=== PATIENT | male | born 1950 ===

== ENCOUNTER 2017-06-13 07:07 | Emergency (ER) | payer OTHER ==
[2017-06-13 07:11] VITALS: BP 130/87
--- NOTE | 2017-06-13 09:13 | ED ---
Kendra Dsouza Gabriel, scribed for Jose Lee MD on 06/13/17 at 0723 . Throat Pain/Nasal Congestion - HPI Summary HPI Summary: This patient is a 67 year old M presenting to [facility] with a chief complaint of foreign body in right ear since this morning. Pt states he was taking off a hearing aid last night and piece of it broke off and feels like it is stuck in his ear. Patient denies jaw pain, CP, SOB, and dyspnea. - History of Current Complaint Chief Complaint: EDEarPain Hx Obtained From: Patient Onset/Duration: Lasting Days - 1, Still Present Severity: Mild Associated Signs And Symptoms: Positive: Negative - jaw pain, CP, SOB, and dyspnea - Allergies/Home Medications Allergies/Adverse Reactions: Allergies Allergy/AdvReac Type Severity Reaction Status Date / Time No Known Allergies Allergy Verified 06/13/17 07:11 PMH/Surg Hx/FS Hx/Imm Hx Previously Healthy: Yes Endocrine/Hematology History: Denies: Hx Diabetes, Hx Systemic Lupus Erythematosus Cardiovascular History: Denies: Hx Hypertension, Hx Myocardial Infarction History: Denies: Hx Renal Disease Musculoskeletal History: Denies: Hx Rheumatoid Arthritis - Surgical History Surgery Procedure, Year, and Place: Tonsillectomy, wisdom teeth extraction Infectious Disease History: No Infectious Disease History: Denies: Traveled Outside the [place] in Last 30 Days - Family History Known Family History: Negative: Hypertension - Social History Lives: With Family Alcohol Use: None Hx Substance Use: No Substance Use Type: Reports: None Hx Tobacco Use: No Smoking Status (MU): Never Smoked Tobacco Review of Systems ENT: Negative - jaw pain Positive: Other - foreign body in ear Negative: Chest Pain Respiratory: Negative - dyspnea Negative: Shortness Of Breath All Other Systems Reviewed And Are Negative: Yes Physical Exam - Summary Physical Exam Summary: Appearance: Well appearing, no pain distress Skin: warm, dry, reflects adequate perfusion Head/face: normal Eyes: EOMI, SATISH ENT: There is a foreign body in the right ear. No redness or edema in the canal Neck: supple, non-tender Respiratory: CTA, breath sounds present Cardiovascular: RRR, pulses symmetrical Abdomen: non-tender, soft Bowel: present Musculoskeletal: normal, strength/ROM intact Neuro: normal, sensory motor intact, A&Ox Triage Information Reviewed: Yes Vital Signs On Initial Exam: Initial Vitals Temp Pulse Resp BP Pulse Ox 97 F 94 16 130/87 96 06/13/17 07:08 06/13/17 07:08 06/13/17 07:08 06/13/17 07:08 06/13/17 07:08 Vital Signs Reviewed: Yes Procedures - Procedure Summary Procedure Summary: Foreign body removal: Using alligator forceps the piece of the hearing aid was easily removed from the right ear canal. Tolerated well without complications. No injury to canal. Diagnostics - Vital Signs Vital Signs Temp Pulse Resp BP Pulse Ox 06/13/17 07:08 97 F 94 16 130/87 96 - Laboratory Lab Statement: Any lab studies that have been ordered have been reviewed, and results considered in the medical decision making process. EENT Course/Dx - Course Course Of Treatment: Pt had soft silicone tip from hearing aid removed without issue. - Diagnoses Provider Diagnoses: Foreign body of ear, right Discharge - Discharge Plan Condition: Good Disposition: HOME Patient Education Materials: Ear Foreign Body (ED) Referrals: Arron Gonzales MD [Primary Care Provider] - Additional Instructions: Follow up as needed. The documentation as recorded by the Kendra evans Gabriel accurately reflects the service I personally performed and the decisions made by Rosa baxter Kirk, MD.
== END 2017-06-13 07:25 | disposition home or self-care (01) ==
LOC: ED 07:07
DX: T16.1XXA Foreign body in right ear, initial encounter (principal); X58.XXXA Exposure to other specified factors, initial encounter; Y92.9 Unspecified place or not applicable
CPT/HCPCS: 99281

== ENCOUNTER 2018-05-21 07:35 | Day surgery (SDC) | payer OTHER ==
[~2018-05-21 07:35] MED LIST: Buffered Lidocaine 0.9% SYRIN* 5 ML/SYR SYRINGE INTRADERM ONE
[2018-05-21] MEDS ORDERED: Midazolam* 1 MG/ML 2 ML VIAL (2 MG) ONE ×2 (09:41→09:45)
[2018-05-21 10:06] VITALS: BP 119/77
--- NOTE | 2018-05-21 13:29 | OP ---
DATE OF OPERATION: 05/21/2018 - [facility] DATE OF : 1950. SURGEON: Brice Mojica M.D. PREOPERATIVE DIAGNOSIS: Cataract right eye. POSTOPERATIVE DIAGNOSIS: Cataract right eye. OPERATIVE PROCEDURE: Extracapsular cataract extraction with intraocular lens implant right eye. DESCRIPTION OF PROCEDURE: The patient was brought to the operating room after being given 1/2% Alcaine with epinephrine drops in the preoperative area. The eye was prepped and draped in the usual sterile fashion. Sterile drape and eyelid speculum were placed. Again, topical 1/2% Alcaine with epinephrine was given. A paracentesis incision was made at the 9 o'clock position with the No.75 blade. Clear cornea incision 2.2 x 2.2-mm was created at the 12 o'clock position starting at the anterior limbus using the 2.2-mm keratome. The anterior chamber was irrigated with 0.4 mL of 1% non-preservative intracameral lidocaine and filled with DisCoVisc. A capsulorrhexis was completed using the cystotome and the Utrata forceps. Hydrodissection was performed with balanced salt solution. The lens nucleus was removed with the Phacoemulsification handpiece without incident. Cortex was removed with the irrigation-aspiration handpiece. The capsular bag was re-inflated using DisCoVisc and an SN60WF 12.5 Implant was inserted with the shooter. The irrigation-aspiration handpiece was used to remove all residual DisCoVisc. The eye was refilled with balanced salt solution and the wound checked and found to be watertight. Topical Maxitrol drops were given. [id number]/[facility] #: [id number] MATHER HOSPITALDenice
[2018-05-24] MEDS ORDERED: Acetaminophen TAB* 325 MG PO PRN (05:00)
== END 2018-05-21 10:15 | disposition home or self-care (01) ==
LOC: OREAST 07:35
PROVIDERS: ATTEND Specialist
DX: H25.811 Combined forms of age-related cataract, right eye (principal); H40.053 Ocular hypertension, bilateral; Z87.891 Personal history of nicotine dependence; E78.5 Hyperlipidemia, unspecified
CPT/HCPCS: J2250; V2632

== ENCOUNTER 2018-05-28 07:33 | Day surgery (SDC) | payer OTHER ==
[2018-05-28] MEDS ORDERED: Midazolam* 1 MG/ML 2 ML VIAL (2 MG) ONE (09:47)
[2018-05-28 10:17] VITALS: BP 116/85
[2018-05-28] MEDS ORDERED: Ketorolac 0.5% OPHTH (NF) 0.5 % 5 ML BTL ONE (10:55)
[2018-05-28] MEDS ORDERED: Phenylephrine 2.5% OPTH.SOL* 2 ML BTL ONE (10:55)
[2018-05-28] MEDS ORDERED: Lidocaine 2% EPI 1:200000 MPF*10-20 ML VIAL ONE (10:55)
[2018-05-28] MEDS ORDERED: Lidocaine 1%* 5 ML VIAL ONE (10:55)
[2018-05-28] MEDS ORDERED: Povidone Iodine 5% OPTH* 30 ML BTL ONE (10:55)
[2018-05-28] MEDS ORDERED: Neomycin/Polymy/Dex OPTH.SUSP* MAXITROL 0.1% 5 ML ONE (10:55)
[2018-05-28] MEDS ORDERED: Cyclopentolate 1% OPTH.SOL* 2 ML BTL ONE (10:55)
[2018-05-28] MEDS ORDERED: Proparacaine 0.5% OPHTH.SOL* 15 ML BTL ONE (10:55)
[2018-05-28] MEDS ORDERED: acetaZOLAMIDE TAB* 250 MG ONE (10:55)
--- NOTE | 2018-05-28 11:40 | OP ---
OPERATIVE NOTE: DATE OF OPERATION: 05/28/18 DATE OF : [birth year] SURGEON: Brice Mojica M.D. PREOPERATIVE DIAGNOSIS: Cataract left eye. POSTOPERATIVE DIAGNOSIS: Cataract left eye. OPERATIVE PROCEDURE: Extracapsular cataract extraction with intraocular lens implant left eye. PROCEDURE: The patient was brought to the operating room after being given 1/2% Alcaine with epineph rine drops in the preoperative area. The eye was prepped and draped in the usual sterile fashion. S terile drape and eyelid speculum were placed. Again, topical 1/2% Alcaine with epinephrine was given . A paracentesis incision was made at the 3 o'clock position with the No.75 blade. Clear cornea inc ision 2.2 x 2.2-mm was created at the 6 o'clock position starting at the anterior limbus using the 2. 2-mm keratome. The anterior chamber was irrigated with 0.4 mL of 1% non-preservative intracameral li docaine and filled with DisCoVisc. A capsulorrhexis was completed using the cystotome and the Utrata forceps. Hydrodissection was performed with balanced salt solution. The lens nucleus was removed wi th the Phacoemulsification handpiece without incident. Cortex was removed with the irrigation-aspira tion handpiece. The capsular bag was re-inflated using DisCoVisc and an SN60WF 11.5 implant was inse rted with the shooter. The irrigation-aspiration handpiece was used to remove all residual DisCoVisc . The eye was refilled with balanced salt solution and the wound checked and found to be watertight. Topical Maxitrol drops were given. [id number]/[facility] #: [id number]
== END 2018-05-28 10:20 | disposition home or self-care (01) ==
LOC: OREAST 07:33
PROVIDERS: ATTEND Specialist
DX: H25.812 Combined forms of age-related cataract, left eye (principal); H40.053 Ocular hypertension, bilateral; Z87.891 Personal history of nicotine dependence; E78.2 Mixed hyperlipidemia
CPT/HCPCS: A9270-GY; J2250; V2632